=== PATIENT | male | born 1970 | race Caucasian/White ===

== ENCOUNTER 2022-09-27 01:50 | Day surgery (SDC) | payer OTHER, SELFPAY ==
[2022-09-15 13:06] VITALS: BMI 34.8
[2022-09-27 07:36] VITALS: BP 120/84; PULSE 80; RESP 20; TEMP 36.2; O2SAT 99
[2022-09-27] MEDS: LACTATED RINGERS 1,000 ML 150 ML IV CONT (07:38)
--- NOTE | 2022-09-27 08:38 | PM.HPGS ---
History of Present Illness History of Present Illness Consent: Risks, benefits, and alternatives have been discussed and questions answered. Patient agrees to proceed with procedure. Chief complaint: neoplasm screening Narrative: Jamey Escoto is a 52 year old male here for first screening colonoscopy Review of Systems Constitutional: Constitutional: Denies headache(s) and Denies weakness Eyes: Eyes: Denies blurry vision ENT: Reports Normal hearing present, Denies headache(s) and Denies neck pain Cardiovascular: Cardiovascular: Denies chest pain and Denies dyspnea Respiratory: Respiratory: Denies dyspnea Gastrointestinal: Gastrointestinal: Reports no additional gastrointestinal complaints Genitourinary: Genitourinary: Denies dysuria Musculoskeletal: Musculoskeletal: Denies neck pain Integumentary/Breasts: Skin/Breast: Denies dry skin Neurologic: Reports Normal hearing present, Denies headache(s) and Denies weakness Psychiatric: Psychiatric: Denies anxiety Endocrine: Endocrine: Denies change in body appearance Hematologic/Lymphatic: Hematologic/Lymphatic: Denies easy bleeding Allergic/Immunologic: Allergic/Immunologic: Denies urticaria PMF Past Medical History Medical History (Updated 09/27/22 @ 08:39 by Lewis Hoffman MD) Colon cancer screening Elevated glucose Essential (primary) hypertension Vitamin D deficiency Family History Family History (Updated 07/21/22 @ 08:28 by Maria G Brandon CMA) Father Anemia of unknown etiology Grandparent Carcinoma of colon Other Carcinoma of colon Other Diabetes mellitus Family history of elevated blood lipids Social History Social History (Updated 07/21/22 @ 08:29 by Maria G Brandon CMA) Smoking status: Never smoker Second hand tobacco smoke exposure: No Alcohol intake: current Drinks per week: 1 Alcohol use details: seldom; 1 beer/month Substance use: never Substance use type: does not use Lack of Transportation: No Lack of Food: Never True Current Housing: I Have Housing Concerned About Future Housing: No Difficulty Paying Gas/Electric Bills: No Difficulty Paying for Meds: No Education: Bachelor's Degree Difficulty w/ Childcare or Family Care: No Living arrangements: with family Spiritual care concerns: No Meds Home Medications and Allergies Home Medications Medication Instructions Recorded Confirmed Type lisinopril 10 mg tablet 10 mg PO DAILY #90 tabs 07/07/22 09/27/22 Rx cholecalciferol (vitamin D3) 25 25 mcg PO DAILY 07/21/22 09/27/22 History mcg (1,000 unit) capsule loratadine 10 mg tablet (Claritin) 10 mg PO DAILY 07/21/22 09/27/22 History Allergies Allergy/AdvReac Type Severity Reaction Status Date / Time No Known Allergies Allergy Verified 09/27/22 07:35 Vital Signs Vital Signs - 24 hr 09/27/22 07:36 Temperature 97.2 F L Pulse Rate 80 Respiratory Rate 20 Blood Pressure 120/84 Pulse Oximetry 99 Oxygen Delivery Room Air Exam Const: General: comfortable and no acute distress HENMT: Face/Nose/Sinus: Normal nares present Eyes: General: appearance normal, both eyes and all related structures Neck: Neck: no JVD Resp: Auscultation: clear to auscultation bilaterally Cardio: Rate: regular rate Rhythm: regular rhythm GI: Inspection: non-distended GI Palp: Yes Soft to palpation Skin: General skin exam: normal color Neuro: General: gait normal Speech: normal speech Extrem: General: normal to inspection Psych: Mental Status: mental status grossly normal Assessment and Plan Assessment and plan (1) Colon cancer screening: Code(s): Z12.11 - Encounter for screening for malignant neoplasm of colon Status: Acute Assessment and Plan: colonoscopy
--- NOTE | 2022-09-27 08:42 | P.PNAN_ITS ---
Anes - Initial Pre Proc Eval Procedure: Operation Date: 09/27/22 09:00 Proposed Procedures p Screening Colonoscopy - Lewis Hoffman MD Date/Time: 09/27/22 08:42 Surgeon: Lewis Hoffman MD Pre Op Diagnosis: neoplasm screening Patient Data Age: 52 Gender: M Height: 1.75 m Weight: 104.5 kg Last Vital Signs Temp 97.2 F L 09/27/22 07:36 Pulse 80 09/27/22 07:36 Resp 20 09/27/22 07:36 BP 120/84 09/27/22 07:36 Pulse Ox 99 09/27/22 07:36 O2 Del Method Room Air 09/27/22 07:36 Allergies Allergy/AdvReac Type Severity Reaction Status Date / Time No Known Allergies Allergy Verified 09/27/22 07:35 Home Medications Medication Instructions Recorded Confirmed Type lisinopril 10 mg tablet 10 mg PO DAILY #90 tabs 07/07/22 09/27/22 Rx cholecalciferol (vitamin D3) 25 25 mcg PO DAILY 07/21/22 09/27/22 History mcg (1,000 unit) capsule loratadine 10 mg tablet (Claritin) 10 mg PO DAILY 07/21/22 09/27/22 History Patient hx anesthesia problems: none Family hx anesthesia problems: none Results Review: All pre-operative results and documents have been reviewed as part of the pre-operative evaluation. [facility], [facility] Past Medical History Medical History (Updated 09/27/22 @ 08:39 by Lewis Hoffman MD) Colon cancer screening Elevated glucose Essential (primary) hypertension Vitamin D deficiency Family History Family History (Updated 07/21/22 @ 08:28 by Maria G Brandon CMA) Father Anemia of unknown etiology Grandparent Carcinoma of colon Other Carcinoma of colon Other Diabetes mellitus Family history of elevated blood lipids Social History Social History (Updated 07/21/22 @ 08:29 by Maria G Brandon CMA) Smoking status: Never smoker Second hand tobacco smoke exposure: No Alcohol intake: current Drinks per week: 1 Alcohol use details: seldom; 1 beer/month Substance use: never Substance use type: does not use Lack of Transportation: No Lack of Food: Never True Current Housing: I Have Housing Concerned About Future Housing: No Difficulty Paying Gas/Electric Bills: No Difficulty Paying for Meds: No Education: Bachelor's Degree Difficulty w/ Childcare or Family Care: No Living arrangements: with family Spiritual care concerns: No Anes - Eval Final PreProcedure Day of Procedure 09/27/22 08:42 Patient weight: obese Heart: regular rate and rhythm Lungs: clear to auscultation Airway: Mallampati scale class II Neurological: alert and oriented Last oral intake: >/= 8 hours ASA classification: II Emergent: no Anesthetic plan: proceed Anesthesia type and monitoring: general GIVS and standard monitoring Results Review: All pre-operative results and documents have been reviewed as part of the pre- operative evaluation. Informed Consent: The patient's anesthetic plan and its attendant risks and benefits were discussed with the patient/family/POA. Questions were solicited and answers provided to the satisfaction of the patient/family/POA.
[2022-09-27 09:02] VITALS: BP 140/76; PULSE 82; RESP 17; O2SAT 92
[2022-09-27 09:12] VITALS: BP 125/82; PULSE 81; RESP 24; O2SAT 94
[2022-09-27 09:22] VITALS: BP 123/80; PULSE 75; RESP 19; O2SAT 95
== END 2022-09-27 09:29 | disposition home or self-care (01) ==
PROVIDERS: PCP Family Medicine; Visit Provider Internal Medicine Gastroenterology
PROC: 0DJD8ZZ Inspection of Lower Intestinal Tract, Via Natural or Artificial Opening Endoscopic (ICD-10-PCS; CPT 45378; principal; 2022-09-27 09:00)
DX: Z12.11 Encounter for screening for malignant neoplasm of colon (principal); D12.3 Benign neoplasm of transverse colon; I10 Essential (primary) hypertension; E55.9 Vitamin D deficiency, unspecified; E66.9 Obesity, unspecified; Z68.34 Body mass index [BMI] 34.0-34.9, adult
CPT/HCPCS: 45385; 88305; J2704; J7120

== ENCOUNTER 2023-09-19 14:23 | Emergency (ER) | payer OTHER, SELFPAY ==
[2023-09-19 14:36] VITALS: BP 147/85; PULSE 99; RESP 18; TEMP 36.4; O2SAT 96
--- NOTE | 2023-09-19 15:06 | ED.URI ---
HPI - URI/Sore Throat General Chief Complaint: Upper Respiratory Infection Stated Complaint: Sinus Problems Time Seen by Provider: 09/19/23 14:55 Source: patient and RN notes reviewed Mode of arrival: ambulatory Limitations: no limitations History of Present Illness HPI Narrative: Patient presents today complaining of a 2 day history of headache, nasal congestion, fatigue, postnasal drip, rhinorrhea. Denies fever or shortness of breath. No history of asthma or COPD. He has been taking [id number] medication for symptoms without relief and currently rates his pain 0/10. He is a nonsmoker. States prior to onset of symptoms he was [place]. Related Data Home Medications Medication Instructions Recorded Confirmed cholecalciferol (vitamin D3) 25 25 mcg PO DAILY 07/21/22 09/19/23 mcg (1,000 unit) capsule loratadine 10 mg tablet (Claritin) 10 mg PO DAILY 07/21/22 09/19/23 Allergies Allergy/AdvReac Type Severity Reaction Status Date / Time No Known Allergies Allergy Verified 09/19/23 14:39 Review of Systems Review of Systems: CONSTITUTIONAL: Denies body aches, fever, chills, or sweats.+ fatigue EYES: Denies visual changes, redness, or discharge. ENT: Denies otalgia.+ rhinorrhea, nasal congestion CARDIOVASCULAR: Denies chest pain, palpitations, or edema. RESPIRATORY: Denies cough or dyspnea. GASTROINTESTINAL: Denies abdominal pain, nausea, vomiting, or diarrhea. GENITOURINARY: Denies dysuria or hematuria. SKIN: Denies rash, itching, or wounds. MUSCULOSKELETAL: Denies back pain, joint pain, or myalgia. NEUROLOGIC: Denies numbness, tingling, or weakness.+ headache PSYCH: Denies depression or anxiety. [facility], LAT[facility] Past Medical History Medical History Colon cancer screening Elevated glucose Essential (primary) hypertension Vitamin D deficiency Family History Family History Father Anemia of unknown etiology Grandparent Carcinoma of colon Other Carcinoma of colon Other Diabetes mellitus Family history of elevated blood lipids Social History Social History Smoking status: Never smoker Second hand tobacco smoke exposure: No Alcohol intake: current Drinks per week: 1 Alcohol use details: seldom; 1 beer/month Substance use: never Substance use type: does not use Lack of Transportation: No Lack of Food: Never True Current Housing: I Have Housing Concerned About Future Housing: No Difficulty Paying Gas/Electric Bills: No Difficulty Paying for Meds: No Education: Bachelor's Degree Difficulty w/ Childcare or Family Care: No Living arrangements: with family Spiritual care concerns: No Comments At time of signature, I have reviewed and agree with nursing past medical, surgical, social and family history unless otherwise noted. Please see nursing chart for further information. There is no relevant family history pertinent to the presenting complaint Exam Narrative: GENERAL: Mildly ill-appearing, well-nourished, and in no acute distress. HEAD: Normocephalic, atraumatic. EYES: EOMI. No redness or drainage. Conjunctivae normal. ENT: Mucous membranes pink and moist. Nares congested with rhinorrhea. TMs normal bilaterally. Throat mildly erythematous without edema or exudate. Uvula midline. NECK: Normal AROM. Supple. No lymphadenopathy. CHEST: No respiratory distress. Clear to auscultation. HEART: Regular rate and rhythm. No murmur appreciated. EXTREMITIES: Normal range of motion. No edema. SKIN: Warm, dry, no rash. Capillary refill normal. Normal skin turgor. NEURO: No focal deficits. Alert and oriented x3. Gait steady. PSYCH: Normal affect. No signs of depression or anxiety. Course Course Level of Care: Express Care Visit Vital Signs Vital sig
== END 2023-09-19 15:13 | disposition home or self-care (01) ==
PROVIDERS: Emergency Provider Nurse Practitioner; PCP Family Medicine
DX: J30.2 Other seasonal allergic rhinitis (principal); I10 Essential (primary) hypertension; E55.9 Vitamin D deficiency, unspecified
CPT/HCPCS: 99213; G0463